=== PATIENT | female | born 1980 | race Hispanic/Latino ===

== ENCOUNTER 2018-03-02 08:25 | Day surgery (SDC) | payer BC ==
[2018-03-02 09:09] VITALS: TEMP 98.4
[2018-03-02] MEDS ORDERED: Lactated Ringer's 500 ML IV ONE (09:54)
[2018-03-02] MEDS ORDERED: Propofol 10 mg/ml Inj (20 ML) ONE (10:04)
[2018-03-02 11:44] VITALS: BP 106/65; PULSE 50; RESP 18; O2SAT 98
== END 2018-03-02 11:42 | disposition home or self-care (01) ==
LOC: C.ENDO 08:25
PROVIDERS: ATTEND Internal Medicine Gastroenterology
DX: K64.1 Second degree hemorrhoids (principal)
CPT/HCPCS: 45378; 84703; J2704; J7120